=== PATIENT | male | born 1990 | race Caucasian/White ===

== ENCOUNTER 2022-12-29 16:48 | Outpatient (CLI) | payer BC, SELFPAY ==
--- NOTE | 2023-01-02 09:26 | WPDHOLTEREM ---
Holter/Event Monitor Holter/Event Monitor Date of procedure: 12/29/22 Holter/Event Procedure: 48 Hr Holter Monitor Indications: Palpitations Conclusion: 1. 48 hour holter monitor on 12/29/22. 2. Underlying rhythm is sinus rhythm with sinus arrhythmia. HR range 47-169 bpm; average HR 91 bpm. HR at 169 bpm was probably sinus tachycardia at 16:55. 3. There are 15 premature supraventricular complexes and 2 supraventricular couplets. No obvious supraventricular arrhythmias due to baseline artifact at 16:55. 4. There are 82 premature ventricular complexes. No ventricular tachycardia. 5. No sinoatrial or atrioventricular blocks. No significant pauses greater than seconds. 6. Patient reports 4 episodes of shortness of breath which demonstrate sinus rhythm, HR range 97-121 bpm.
== END 2022-12-29 16:49 | disposition home or self-care (01) ==
PROVIDERS: PCP Physician Assistant; Visit Provider Physician Assistant
DX: R00.2 Palpitations (principal)
CPT/HCPCS: 93225; 93226